=== PATIENT | male | born 1985 | race Two or more races ===

== ENCOUNTER 2017-02-26 09:21 | Emergency (ER) | payer BC ==
[~2017-02-26] VITALS: Ht 182.9 cm; Wt 69.4 kg
[2017-02-26 09:27] VITALS: BP 147/70
[2017-02-26] MEDS ORDERED: TETRACAINE HCL/PF 0.5% UD 2 ML BOTTLE ONE (09:27)
[2017-02-26] MEDS ORDERED: FLUORESCEIN SODIUM OPHTH 1 EA STRIP ONE (09:27)
[2017-02-26] MEDS ORDERED: FLUORESCEIN SODIUM OPHTH 1 EA STRIP OP ONE (10:00)
[2017-02-26] MEDS ORDERED: TETRACAINE HCL 0.5% OPHTALMIC 15 ML BOTTLE OP ONE (10:00)
== END 2017-02-26 09:55 | disposition home or self-care (01) ==
LOC: ER 09:23
DX: S05.01XA Injury of conjunctiva and corneal abrasion without foreign body, right eye, initial encounter (principal); X58.XXXA Exposure to other specified factors, initial encounter; Y93.89 Activity, other specified; Y92.89 Other specified places as the place of occurrence of the external cause; Y99.9 Unspecified external cause status
CPT/HCPCS: 99283; A4606; Z7610